=== PATIENT | male | born 1965 | race American Indian/Alaskan Native ===

== ENCOUNTER 2016-05-27 21:24 | Emergency (ER) | payer OTHER ==
[2016-05-27 21:25] VITALS: BMI 24.2
[2016-05-27 22:19] VITALS: BP 96/64; PULSE 81; RESP 15; TEMP 98.7; O2SAT 99
--- NOTE | 2016-05-27 22:53 | ED PDOC ---
Arrival/HPI - General Chief Complaint: Lower Extremity Problem/Injury Time Seen by Provider: 05/27/16 22:25 Historian: Patient - History of Present Illness Narrative History of Present Illness (Text): 05/27/16 22:51 50 y/o male, pmh including sciatica, nkda, c/o lt. ankle pain x 2 hours s/p twisted at work. Aching pain, aggravated by walking and standing, no numbness or tingling, no calf pain, no palpitation, no other medical or psychological complaints. Past Medical History - Provider Review Nursing Documentation Reviewed: Yes - Infectious Disease Hx of Infectious Diseases: None - Tetanus Immunization Tetanus Immunization: Up to Date - Cardiac Hx Cardiac Disorders: No - Pulmonary Hx Respiratory Disorders: No - Neurological Hx Neurological Disorder: No - HEENT Hx HEENT Disorder: No - Renal Hx Renal Disorder: No - Endocrine/Metabolic Hx Endocrine Disorders: No - Hematological/Oncological Hx Blood Disorders: Yes Hx Cancer: Yes (prostate) - Integumentary Hx Dermatological Disorder: No - Musculoskeletal/Rheumatological Hx Musculoskeletal Disorders: No - Gastrointestinal Hx Gastrointestinal Disorders: Yes Hx Gastroesophageal Reflux: Yes Other/Comment: OCCASSIONAL CONSTIPATION - Genitourinary/Gynecological Hx Genitourinary Disorders: No - Psychiatric Hx Psychophysiologic Disorder: No Hx Substance Use: No - Past Surgical History Past Surgical History: Non-Contributing - Surgical History Other/Comment: PROSTATE BX. X 2,prostatectomy - Anesthesia Hx Anesthesia: Yes Hx Anesthesia Reactions: No Hx Malignant Hyperthermia: No - Suicidal Assessment Feels Threatened In Home Enviroment: No Family/Social History - Physician Review Nursing Documentation Reviewed: Yes Family/Social History: Unknown Family HX Smoking Status: Never Smoked Hx Alcohol Use: No Hx Substance Use: No Hx Substance Use Treatment: No Allergies/Home Meds Allergies/Adverse Reactions: Allergies No Known Allergies Allergy (Verified 05/27/16 22:16) Home Medications: Home Meds Medication Instructions Recorded Confirmed Esomeprazole Magnesium [Nexium] 40 mg PO DAILY 04/08/13 05/27/16 Review of Systems - Review of Systems Constitutional: absent: Fatigue, Fevers Eyes: absent: Vision Changes ENT: absent: Hearing Changes Respiratory: absent: Cough Cardiovascular: absent: Chest Pain Gastrointestinal: absent: Abdominal Pain, Nausea, Vomiting Musculoskeletal: Arthralgias. absent: Back Pain, Neck Pain, Joint Swelling, Myalgias Skin: absent: Rash, Pruritis, Skin Lesions, Laceration, Abscess, Ulcer, Cellulitis Neurological: absent: Headache, Dizziness, Focal Weakness, Gait Changes, Speech Changes, Facial Droop, Disequilibrium, Seizure Physical Exam Vital Signs Reviewed: Yes Vital Signs Temp Pulse Resp BP Pulse Ox 05/27/16 22:17 98.7 F 81 15 96/64 L 99 Temperature: Afebrile Pulse: Regular Respiratory Rate: Normal Appearance: Positive for: Well-Appearing, Non-Toxic, Comfortable Pain Distress: None Mental Status: Positive for: Alert and Oriented X 3 - Systems Exam Head: Present: Atraumatic, Normocephalic. No: Tenderness, Contusion, Swelling, Ecchymosis, Abrasion, Laceration, Other Ears: Present: NORMAL TM, Normal Canal Pharnyx: No: ERYTHEMA, EXUDATE, TONSILS ENLARGED Nose (External): Present: Atraumatic. No: Abrasion, Contusion Neck: Present: Normal Range of Motion Respiratory/Chest: Present: Clear to Auscultation, Good Air Exchange, Respiratory Distress Cardiovascular: Present: Regular Rate and Rhythm, Normal S1, S2. No: Murmurs Abdomen: Present: Normal Bowel Sounds. No: Tenderness, Distention, Peritoneal Signs Lower Extremity: Present: Normal Inspection, NORMAL PULSES, Neurovascularly Intact, Other (Lt. foot/ankle: +ttp on the lateral mallolus near the lateral foot/ankle region, no swelling, no deformity, negative bryon and castaneda signs , FROM without limitation, sensation intact, motor 5/5, +DPPT pulses, capillary refill< 2 seconds, neurovascuar intact. ). No: Edema, CALF TENDERNESS, Bryon's Sign Medical Decision Making ED Course and Treatment: 05/27/16 22:54 -lt. foot/ankle xray -motrin -observe and reassess 05/27/16 23:30 -Lt. foot and ankle show possible avulsion fracture, -posterior splint applied with neurovascular intact by me and crutches ordered with neurovascular intact. -Discharge home with posterior splint, crutches, naproxen, weight bearing as tolerated, follow up with your own pmd and orthopedic/truck driver within 2 days, return to the ER for any new or worsening signs or symptoms. - RAD Interpretation Radiology Orders: 05/27/16 22:48 ANKLE LEFT 3 VIEWS ROUTINE [RAD] Stat FOOT LEFT 3 VIEWS ROUTINE [RAD] Stat COMPARISON: CR - ANKLE LEFT 3 VIEWS ROUTINE 05/27/2016 10:41:51 PM FINDINGS: Bones/joints: 2 well-circumscribed 3 and 4 mm osseous densities are identified adjacent to the cuboid bone, possibly small sesamoid bones versus evulsion fractures for which clinical correlation is needed. Please correlate this finding to the point of maximal tenderness on clinical examination. No acute displaced fracture is otherwise identified. Soft tissues: No discrete soft tissue swelling is detected. No radiopaque foreign body. IMPRESSION: Findings lateral to the cuboid bone which may simply represent a small sesamoid bones, and evulsion fracture cannot be excluded for which clinical correlation is needed. Thank you for allowing us to participate in the care of your patient. Dictated and Authenticated by: Beata Owens MD Shoe Repairer Apprentice: Radiologist - Medication Orders Current Medication Orders: Discontinued Medications Ibuprofen (Motrin Tab) 600 mg PO STAT STA Stop: 05/27/16 22:51 Last Admin: 05/27/16 23:01 Dose: 600 MG MAR Pain/Vitals Document 05/27/16 23:01 [facility] (Rec: 05/27/16 23:01 [email or web address]) Pain Reassessment Is This A Pain ReAssessment? No Sleep Is patient sleeping during reassessment? No Presence of Pain Presence of Pain Yes Pain Scale Used Pain Scale Used Numeric Location Left, Right or Bilateral Left Pain Location Body Site Ankle Description Constant Intensity 8 Scale Used Numeric - PA / HEALTH AND SAFETY TECH / Resident Statement MD/DO has reviewed & agrees with the documentation as recorded. Disposition/Present on Arrival - Present on Arrival Any Indicators Present on Arrival: No History of DVT/PE: No History of Uncontrolled Diabetes: No Urinary Catheter: No History of Decub. Ulcer: No History Surgical Site Infection Following: None - Disposition Have Diagnosis and Disposition been Completed?: Yes Diagnosis: Ankle injury, Ankle pain, Foot fracture Disposition: HOME/ ROUTINE Disposition Time: 23:31 Patient Plan: Discharge Condition: IMPROVED Additional Instructions: Discharge home with posterior splint, crutches, naproxen, weight bearing as tolerated, follow up with your own pmd and orthopedic/truck driver within 2 days, return to the ER for any new or worsening signs or symptoms. Prescriptions: Naproxen 500 mg PO BID PRN #20 tab PRN Reason: Other Referrals: Anthony Bronson MD [Primary Care Provider] - Follow up with primary Gabriel Matta III, MD [Medical Doctor] - Follow up with primary Georgina Patterson DPM [Staff Provider] - Follow up with primary Forms: WORK NOTE
--- NOTE | 2016-05-28 10:10 | RAD ---
PROCEDURE: Left Ankle Radiographs. HISTORY: Twisting injury COMPARISON: None FINDINGS: BONES: Normal. No fracture. JOINTS: Normal. No osteoarthritis. Ankle mortise maintained. Talar dome intact SOFT TISSUES: Minor soft tissue swelling over lateral malleolus OTHER FINDINGS: None. IMPRESSION: No acute fractures nor dislocations. Minor soft tissue swelling over lateral malleolus of. If symptoms persist or occult fracture suspected clinically, consider followup radiographs in 5-10 days as most fractures should become radiographically evident in this timeframe.
--- NOTE | 2016-05-28 10:57 | RAD ---
PROCEDURE: Left Foot Radiographs. HISTORY: Twisting injury COMPARISON: Correlation made with concurrent radiographs of the left ankle FINDINGS: BONES: The current study reveals no definitive radiographic evidence of acute displaced fracture nor dislocation. Few tiny well corticated bony densities within the soft tissues adjacent to the inferolateral margin of the cuboid may represent sesamoid bones however concomitant sequela of old avulsion injury not excluded. Recommend correlation with physical exam to assess for point tenderness JOINTS: Joint spaces appear relatively preserved with no significant osteoarthritis SOFT TISSUES: No radiopaque foreign bodies are identified. OTHER FINDINGS: None. IMPRESSION: There are a few tiny corticated bony densities within the inferolateral soft tissues adjacent to the lateral margin of the cuboid that could represent sesamoid bones however of concomitant sequela of old avulsion injury not excluded. Recommend correlation with physical exam as above
== END 2016-05-28 00:58 | disposition home or self-care (01) ==
LOC: ED 21:24
DX: S99.912A Unspecified injury of left ankle, initial encounter (principal); S92.902A Unspecified fracture of left foot, initial encounter for closed fracture; X50.1XXA Overexertion from prolonged static or awkward postures, initial encounter; Y92.89 Other specified places as the place of occurrence of the external cause; Y99.0 Civilian activity done for income or pay; M25.572 Pain in left ankle and joints of left foot

== ENCOUNTER 2017-12-17 12:42 | Emergency (ER) | payer OTHER ==
[2017-12-17 12:49] VITALS: RESP 18; TEMP 98.4; BMI 25.0
--- NOTE | 2017-12-17 14:57 | ED PDOC ---
Arrival/HPI - General Chief Complaint: Eye Problem Time Seen by Provider: 12/17/17 13:42 Historian: Patient - History of Present Illness Narrative History of Present Illness (Text): 12/17/17 14:58 52-year-old male presents today with a red itchy eye that started this morning. Patient denies pain. He denies blurred vision in the left eye. He denies headaches dizziness or weakness. He denies chest pain or shortness of breath. Ran parker states for the past 2 weeks in the right eye he has been having intermittently blurry vision. Patient states for second his I will go cloudy and then will clear up. Patient states she's not sure if there is a film or discharge that covering the eye. Patient states the cloudiness last a second and then resolves. He denies any pain in the right eye. Patient denies any visual problems at present time. Patient denies any trauma or injury. No other complaints Time/Duration: > week Past Medical History - Provider Review Nursing Documentation Reviewed: Yes - Travel History Have you recently traveled outside [place] w/in the past 3 mons?: No - Infectious Disease Hx of Infectious Diseases: None - Tetanus Immunization Tetanus Immunization: Up to Date - Cardiac Hx Cardiac Disorders: No - Pulmonary Hx Respiratory Disorders: No - Neurological Hx Neurological Disorder: No - HEENT Hx HEENT Disorder: No - Renal Hx Renal Disorder: No - Endocrine/Metabolic Hx Endocrine Disorders: No - Hematological/Oncological Hx Blood Disorders: Yes Hx Cancer: Yes (prostate) - Integumentary Hx Dermatological Disorder: No - Musculoskeletal/Rheumatological Hx Musculoskeletal Disorders: No - Gastrointestinal Hx Gastrointestinal Disorders: Yes Hx Gastroesophageal Reflux: Yes Other/Comment: OCCASSIONAL CONSTIPATION - Genitourinary/Gynecological Hx Genitourinary Disorders: Yes Hx Prostate Cancer: Yes - Psychiatric Hx Psychophysiologic Disorder: No Hx Substance Use: No - Past Surgical History Past Surgical History: Non-Contributing - Surgical History Other/Comment: PROSTATE BX. X 2,prostatectomy - Anesthesia Hx Anesthesia: Yes Hx Anesthesia Reactions: No Hx Malignant Hyperthermia: No - Suicidal Assessment Feels Threatened In Home Enviroment: No Family/Social History - Physician Review Nursing Documentation Reviewed: Yes Family/Social History: Unknown Family HX Smoking Status: Never Smoked Hx Alcohol Use: No Hx Substance Use: No Hx Substance Use Treatment: No Allergies/Home Meds Allergies/Adverse Reactions: Allergies No Known Allergies Allergy (Verified 12/17/17 13:23) Review of Systems - Review of Systems Constitutional: absent: Fatigue, Fevers Eyes: Vision Changes. absent: Photophobia, Eye Pain Respiratory: absent: SOB, Cough Cardiovascular: absent: Chest Pain, Palpitations Gastrointestinal: absent: Abdominal Pain, Nausea, Vomiting Neurological: absent: Headache, Dizziness Psychiatric: absent: Anxiety, Depression Physical Exam Vital Signs Reviewed: Yes Vital Signs Temp Pulse Resp BP Pulse Ox 12/17/17 12:48 98.4 F 78 18 125/73 100 Temperature: Afebrile Blood Pressure: Normal Pulse: Regular Respiratory Rate: Normal Appearance: Positive for: Well-Appearing, Non-Toxic, Comfortable Pain Distress: None Mental Status: Positive for: Alert and Oriented X 3 - Systems Exam Head: Present: Atraumatic Pupils: Present: PERRL Extroacular Muscles: Present: EOMI. No: Entrapment Conjunctiva: Present: Injected (minimal left eye conjunctival injection; ), Other (no hyphema. no corneal abrasion or ulceration; pressure in right eye 19, pressure in left eye 17, ) Ears: Present: Normal, NORMAL TM. No: Erythema Mouth: Present: Moist Mucous Membranes Neck: Present: Normal Range of Motion Respiratory/Chest: Present: Clear to Auscultation, Good Air Exchange. No: Respiratory Distress, Accessory Muscle Use Cardiovascular: Present: Regular Rate and Rhythm, Normal S1, S2. No: Murmurs Upper Extremity: Present: Normal ROM Lower Extremity: Present: Normal ROM Neurological: Present: GCS=15, Speech Normal Skin: Present: Warm, Dry Psychiatric: Present: Alert, Oriented x 3 Medical Decision Making ED Course and Treatment: 12/17/17 15:08 Patient is nontoxic well appearing in no distress Patient with left eye redness since this morning and the right eye intermittent blurred vision 2 weeks currently without blurred vision. No corneal abrasions. No elevated ocular pressure. No signs of acute trauma. Left Conjunctival injection noted, PERRLA, extraocular muscles intact Case was discussed in depth with Dr. Jacobson; he will see the patient in the office tomorrow morning at 9 AM Patient was advised to use antibiotics eyedrops as prescribed and follow-up with the eye doctor tomorrow morning at 9 AM in the office. Advised immediate return if symptoms worsen persist or if new concerning symptoms develop Patient verbalizes understanding of discharge instructions and need for immediate followup. all aspects of this case were discussed the attending of record. Impression: Conjunctivitis, vision changes Tobrex: 2 drops in the affected eye 4 times daily Followup with the eye doctor tomorrow at 9am Return immediately if symptoms worsen persist or if new symptoms develop; blurry vision, worsening eye pain, worsening redness or any other concerning symptoms develop. Follow up with the primary care physician within the next 2 days Disposition/Present on Arrival - Present on Arrival Any Indicators Present on Arrival: No History of DVT/PE: No History of Uncontrolled Diabetes: No Urinary Catheter: No History of Decub. Ulcer: No History Surgical Site Infection Following: None - Disposition Have Diagnosis and Disposition been Completed?: Yes Diagnosis: Conjunctivitis Disposition: HOME/ ROUTINE Disposition Time: 14:00 Patient Plan: Discharge Condition: GOOD Discharge Instructions (ExitCare): Conjunctivitis ([place]) Additional Instructions: Tobrex: 2 drops in the affected eye 4 times daily Followup with the eye doctor tomorrow at 9am Return immediately if symptoms worsen persist or if new symptoms develop; blurry vision, worsening eye pain, worsening redness or any other concerning symptoms develop. Follow up with the primary care physician within the next 2 days Prescriptions: Tobramycin 0.3% [Tobramycin 5 Ml] 2 drop OS QID #1 bottle Referrals: Neeraj Jacobson MD [Staff Provider] - Follow up with primary Brianna Guillermo MD [Medical Doctor] - Follow up with primary [employer] [Outside] - Follow up with primary Forms: [facility] (Chadian), WORK NOTE
[2017-12-17 16:23] VITALS: BP 114/77; PULSE 74; O2SAT 99
== END 2017-12-17 15:00 | disposition home or self-care (01) ==
LOC: ED 12:42
DX: H10.9 Unspecified conjunctivitis (principal); Z85.46 Personal history of malignant neoplasm of prostate

== ENCOUNTER 2018-01-28 10:59 | Emergency (ER) | payer OTHER ==
[2018-01-28 11:00] VITALS: BMI 25.0
[2018-01-28 11:21] VITALS: RESP 18
--- NOTE | 2018-01-28 12:58 | ED PDOC ---
Arrival/HPI - General Chief Complaint: Eye Problem Time Seen by Provider: 01/28/18 11:11 Historian: Patient - History of Present Illness Narrative History of Present Illness (Text): 01/28/18 12:54 A 52 year old male, with no significant past medical history, presents to the emergency department with a complaint of bilateral eye pain. The patient notes that the eye discomfort began last night. He notes that he has been seen by his time study technologist, who prescribed him Tobramycin Dexamethasone Ophthalmic Suspension. He reports using it, but his pain becoming worse last night. He also complains of photophobia. Patient denies fevers, chills, headache, dizziness, chest pain, shortness of breath, dyspnea on exertion, cough, abdominal pain, nausea, vomiting, diarrhea, back pain, neck pain, urinary/bowel changes, or any other complaint. Loan Representative: Dr. Braxton Time/Duration: Other (Today) Symptom Onset: Sudden Symptom Course: Worsening Activities at Onset: Rest, Light Context: Home Past Medical History - Provider Review Nursing Documentation Reviewed: Yes - Infectious Disease Hx of Infectious Diseases: None - Tetanus Immunization Tetanus Immunization: Up to Date - Cardiac Hx Cardiac Disorders: No - Pulmonary Hx Respiratory Disorders: No - Neurological Hx Neurological Disorder: No - HEENT Hx HEENT Disorder: No - Renal Hx Renal Disorder: No - Endocrine/Metabolic Hx Endocrine Disorders: No - Hematological/Oncological Hx Blood Disorders: Yes Hx Cancer: Yes (prostate) - Integumentary Hx Dermatological Disorder: No - Musculoskeletal/Rheumatological Hx Musculoskeletal Disorders: No - Gastrointestinal Hx Gastrointestinal Disorders: Yes Hx Gastroesophageal Reflux: Yes Other/Comment: OCCASSIONAL CONSTIPATION - Genitourinary/Gynecological Hx Genitourinary Disorders: No - Psychiatric Hx Psychophysiologic Disorder: No Hx Substance Use: No - Past Surgical History Past Surgical History: Non-Contributing - Surgical History Other/Comment: PROSTATE BX. X 2,prostatectomy - Anesthesia Hx Anesthesia: Yes Hx Anesthesia Reactions: No Hx Malignant Hyperthermia: No - Suicidal Assessment Feels Threatened In Home Enviroment: No Family/Social History - Physician Review Nursing Documentation Reviewed: Yes Family/Social History: No Known Family HX Smoking Status: Never Smoked Hx Alcohol Use: No Hx Substance Use: No Hx Substance Use Treatment: No Allergies/Home Meds Allergies/Adverse Reactions: Allergies No Known Allergies Allergy (Verified 01/28/18 11:21) Review of Systems - Physician Review All systems were reviewed & negative as marked: Yes - Review of Systems Constitutional: absent: Fevers Eyes: Photophobia, Eye Pain (bilateral eye pain.) Respiratory: absent: SOB, Cough Cardiovascular: absent: Chest Pain, ALONZO Gastrointestinal: absent: Abdominal Pain, Stool Changes, Diarrhea, Nausea, Vomiting Genitourinary Male: absent: Urinary Output Changes Musculoskeletal: absent: Back Pain, Neck Pain Neurological: absent: Headache, Dizziness Physical Exam - Physical Exam Narrative Physical Exam (Text): 01/28/18 13:07 Gen: VS reviewed, alert, well developed, well nourished, nontoxic, mild distress. ENT: normal pharynx. Eye: EOMI, PERRL. Bilateral conjunctival injection and redness. Photophobia. Neck: no JVD, supple, no adenopathy. CV: regular rate, regular rhythm, no rubs, no murmur, no gallops, S1, S2, pulses equal and strong. Pulm: no distress, clear to auscultation, no wheeze, no rhonchi, breath sounds equal, no rales. Abd: soft, nontender, no guarding, no rebound, no rigidity, normal bowel sounds. Ext: no edema. Skin: good color, no rash, no cyanosis. Psych: responds appropriately to questions, normal affect. Neuro: oriented x 3, CN2-12 intact grossly, motor intact, sensation intact. Vital Signs Reviewed: Yes Vital Signs Temp Pulse Resp BP Pulse Ox 01/28/18 11:18 98.1 F 76 18 126/79 99 Temperature: Afebrile Blood Pressure: Normal Pulse: Regular Respiratory Rate: Normal Appearance: Positive for: Well-Appearing, Non-Toxic, Comfortable Pain Distress: None Mental Status: Positive for: Alert and Oriented X 3 Medical Decision Making ED Course and Treatment: 01/28/18 13:08 Impression: A 52 year old male presents to the emergency department with a complaint of bilateral eye pain. Plan: -- Reassess and disposition Prior Visits: Notes and results from previous visits were reviewed. Progress Notes: 01/28/18 14:00 no abnormal fluerescein uptake in both eyes iop in right eye measured at 22 iop in left eye measured at 27 01/28/18 14:[address] braxton, ophthmalmology, states that despite elevated IOP they are not consistent with pain associated with glaucoma. He recommnds switching eye drops to Maxitrol and for the patient to follow up tomorrow morning at 9AM. 01/28/18 15:48 patient feels much better, no longer has photophobia, appears comfortable and stable for dc - Scribe Statement The provider has reviewed the documentation as recorded by the Scribe Guillermina Casey Provider Scribe Attestation: All medical record entries made by the Scribe were at my direction and personally dictated by me. I have reviewed the chart and agree that the record accurately reflects my personal performance of the history, physical exam, medical decision making, and the department course for this patient. I have also personally directed, reviewed, and agree with the discharge instructions and disposition. Disposition/Present on Arrival - Present on Arrival Any Indicators Present on Arrival: No History of DVT/PE: No History of Uncontrolled Diabetes: No Urinary Catheter: No History of Decub. Ulcer: No History Surgical Site Infection Following: None - Disposition Have Diagnosis and Disposition been Completed?: Yes Diagnosis: Eye pain Disposition: HOME/ ROUTINE Disposition Time: 15:50 Patient Plan: Discharge Patient Problems: Current Active Problems Problem Status Onset Eye pain Acute Condition: STABLE Additional Instructions: Follow up with Dr. Braxton tomorrow morning at 9AM. GAMALIEL DE LA TORRE, thank you for letting us take care of you today. Your provider was Dr. Yonis Chatman and you were treated for eye inflammation. The emergency medical care you received today was directed at your acute symptoms. If you were prescribed any medication, please fill it and take as directed. It may take several days for your symptoms to resolve. Return to the Emergency Department if your symptoms worsen, do not improve, or if you have any other problems. Please contact your doctor or call one of the physicians/clinics you have been referred to that are listed on the Patient Visit Information form that is included in your discharge packet. Bring any paperwork you were given at discharge with you along with any medications you are taking to your follow up visit. Our treatment cannot replace ongoing medical care by a primary care provider outside of the emergency department. Thank you for allowing the [facility] team to be part of your care today. If you had an X-Ray or CT scan: A Radiologist will review the ED reading if any change in treatment is needed we will contact you. If you had a blood, urine, or wound culture: It will take several days for the results, if any change in treatment is needed we will contact you. If you had an STI test: It will take 48 hours for the results. Please call after 1 week if you have not heard back. Prescriptions: Neomycin/Polymyxin/Dexamethaso [Maxitrol Opth Oint] 3.5 applic OD TID #1 tube Referrals: Julián Chang MD [Primary Care Provider] - Follow up with primary Forms: [employer] (Palestinian)
[2018-01-28] MEDS ORDERED: Morphine 4 mg/ml ISec IVP STA (13:59)
[2018-01-28 14:30] LABS: BASO # 0.01 K/mm3 (0.0-2.0); BASO % 0.2 % (0.0-3.0); EOS # 0.1 (0.0-0.7); EOS % 1.2 % (1.5-5.0); GRAN % 59.1 % (50.0-68.0); HEMOGLOBIN 13.2 g/dL (14.0-18.0); LYMPH # 1.8 (1.2-3.4); LYMPH % 34.6 % (22.0-35.0); MEAN CORPUSCULAR HEMOGLOBIN 27.2 pg (25.0-35.0); MEAN CORPUSCULAR HGB CONC 33.6 g/dl (31.0-37.0); MEAN PLATELET VOLUME 9.9 fl (7.0-11.0); MONO # 0.3 (0.1-0.6); MONO % 4.9 % (1.0-6.0); RBC 4.85 10^6/uL (3.5-6.1); RED CELL DISTRIBUTION WIDTH 15.7 % (11.5-14.5); WHITE BLOOD COUNT 5.1 10^3/uL (4.5-11.0)
[2018-01-28 15:09] LABS: BLOOD UREA NITROGEN 14 mg/dL (7-21); CALCIUM 8.3 mg/dL (8.4-10.5); GFR NON-AFRICAN AMERICAN > 60
[2018-01-28 16:29] VITALS: BP 115/64; PULSE 74; TEMP 98.2; O2SAT 99
== END 2018-01-28 16:27 | disposition home or self-care (01) ==
LOC: ED 10:59
DX: H57.13 Ocular pain, bilateral (principal)
CPT/HCPCS: 80048; 85025; 96374; 99284; J2270

== ENCOUNTER 2018-05-18 10:08 | Outpatient (CLI) | payer OTHER | END 2018-05-18 10:09 | disposition home or self-care (01) | LOC: LAB 10:08 | DX: C61 Malignant neoplasm of prostate (principal) ==

== ENCOUNTER 2018-06-02 17:13 | Emergency (ER) | payer OTHER ==
[2018-06-02 17:16] VITALS: BMI 24.2
[2018-06-02 17:20] VITALS: RESP 18; TEMP 98.4
[2018-06-02] MEDS ORDERED: Lidocaine 1% Inj (20ml) IJ STA (17:32)
[2018-06-02] MEDS ORDERED: Bacitracin 500 Units/gm Oint Foilpak UD TOP ONE (17:32)
[2018-06-02] MEDS ORDERED: TDAP Vaccine 0.5 mL Syr IM ONE (17:34)
--- NOTE | 2018-06-02 17:50 | ED PDOC ---
Arrival/HPI - General Chief Complaint: Finger,Hand,&Wrist Time Seen by Provider: 06/02/18 17:21 Historian: Patient - History of Present Illness Narrative History of Present Illness (Text): 52 y/o male with PMH of prostate cancer and GERD presents to the ED for foreign body removal from left 2nd digit middle phalanx. Pt was fixing windows in his home when his hand slipped and a wooden splinter entered the lateral volar surface of the middle phalanx left 2nd digit. Pt was not wearing gloves. He attempted to remove the splinter at home but was unsuccessful. Unknown last tetanus. Denies numbness, weakness, paresthesias, pain elsewhere, or any other associated symptoms. Past Medical History - Provider Review Nursing Documentation Reviewed: Yes - Infectious Disease Hx of Infectious Diseases: None - Tetanus Immunization Tetanus Immunization: Up to Date - Cardiac Hx Cardiac Disorders: No - Pulmonary Hx Respiratory Disorders: No - Neurological Hx Neurological Disorder: No - HEENT Hx HEENT Disorder: No - Renal Hx Renal Disorder: No - Endocrine/Metabolic Hx Endocrine Disorders: No - Hematological/Oncological Hx Blood Disorders: Yes Hx Cancer: Yes (prostate) - Integumentary Hx Dermatological Disorder: No - Musculoskeletal/Rheumatological Hx Musculoskeletal Disorders: No - Gastrointestinal Hx Gastrointestinal Disorders: Yes Hx Gastroesophageal Reflux: Yes Other/Comment: OCCASSIONAL CONSTIPATION - Genitourinary/Gynecological Hx Genitourinary Disorders: No - Psychiatric Hx Psychophysiologic Disorder: No Hx Substance Use: No - Past Surgical History Past Surgical History: Non-Contributing - Surgical History Other/Comment: PROSTATE BX. X 2,prostatectomy - Anesthesia Hx Anesthesia: Yes Hx Anesthesia Reactions: No Hx Malignant Hyperthermia: No - Suicidal Assessment Feels Threatened In Home Enviroment: No Family/Social History - Physician Review Nursing Documentation Reviewed: Yes Family/Social History: No Known Family HX Smoking Status: Never Smoked Hx Alcohol Use: No Hx Substance Use: No Hx Substance Use Treatment: No Allergies/Home Meds Allergies/Adverse Reactions: Allergies No Known Allergies Allergy (Verified 01/28/18 11:21) Review of Systems - Review of Systems Constitutional: Normal. absent: Fevers Respiratory: Normal. absent: SOB, Cough Cardiovascular: Normal. absent: Chest Pain, Palpitations, Syncope Gastrointestinal: Normal. absent: Abdominal Pain, Nausea, Vomiting Musculoskeletal: Normal. absent: Back Pain, Neck Pain Skin: Other (splinter in left 2nd digit) Neurological: Normal Physical Exam Vital Signs Reviewed: Yes Vital Signs Temp Pulse Resp BP Pulse Ox 06/02/18 17:13 98.4 F 83 18 134/86 98 Temperature: Afebrile Blood Pressure: Normal Pulse: Regular Respiratory Rate: Normal Appearance: Positive for: Well-Appearing, Non-Toxic, Comfortable Pain Distress: None Mental Status: Positive for: Alert and Oriented X 3 - Systems Exam Head: Present: Atraumatic, Normocephalic Pupils: Present: PERRL Extroacular Muscles: Present: EOMI Conjunctiva: Present: Normal Mouth: Present: Moist Mucous Membranes Neck: Present: Normal Range of Motion. No: Meningeal Signs Respiratory/Chest: Present: Clear to Auscultation, Good Air Exchange. No: Respiratory Distress, Accessory Muscle Use Cardiovascular: Present: Regular Rate and Rhythm, Normal S1, S2, Peripheal Pulses Present Back: Present: Normal Inspection Upper Extremity: Present: Normal Inspection, Normal ROM, NORMAL PULSES, Tenderness (over splinter), Neurovascularly Intact, Capillary Refill < 2s, Other (small puncture wound to lateral left second digit, volar aspect of middle phalanx with visible foreign body just under skin; no signs of infection, no active bleeding). No: Cyanosis, Edema, Temperature Abnormalties Lower Extremity: Present: Normal ROM Neurological: Present: GCS=15, Speech Normal, Motor Func Grossly Intact, Normal Sensory Function, Gait Normal Skin: Present: Warm, Dry, Normal Color. No: Rashes Psychiatric: Present: Alert, Oriented x 3, Normal Insight, Normal Concentration, Normal Affect, Normal Mood Medical Decision Making ED Course and Treatment: Initial Plan: * Wound cleaning * FB removal * TDaP * Tylenol Foreign body removed from left second digit without difficulty. Pt tolerated procedure well without complication. Hemostasis achieved. No further FB seen. See procedure note. Wound care discussed. No XR indicated as wood is radiolucent. Advised PMD and hand followup. Prescribed course of prophylactic antibiotics secondary to puncture wound. Diagnostic testing results and plan of care discussed with patient. Strict instructions given regarding prescription use, importance of followup, and signs/symptoms to return to ER including wound swelling, redness, erythema, drainage, foul odor, worsening pain, or any other new/worsening symptoms. Pt verbalized understanding of discussion. Patient is A&Ox3, ambulating with steady gait, with vital signs stable for discharge. - Medication Orders Current Medication Orders: Bacitracin (Bacitracin) 1 ea TOP ONCE ONE Stop: 06/02/18 17:33 Lidocaine HCl (Lidocaine 1% (20ml)) 10 ml IJ STAT STA Stop: 06/02/18 17:33 Procedures - Time-Out Type of Procedure: Foreign Body Removal Site of Procedure: Left 2nd digit Correct Patient (with visual ID + MR# on ID Band): Yes Correct Procedure: Yes Correct Site Marked: Yes Medication Reconciliation / Bloodwork / Allergies Checked: Yes PA/Tech: Andrez - Additional Procedures Progress: Left 2nd digit prepped with betadine. Digit block performed using 3cc 1% lidocaine without epinephrine. Area again prepped with betadine. Small, 3mm incision made to lateral middle phalanx of left 2nd digit to widen entry point with #11 blade. 1.25cm wooden splinter removed whole from middle phalanx without difficulty. No further FB seen on wound exploration. Wound irrigated with 100cc NS. Bacitracin and sterile dressing applied. Tetanus updated. Disposition/Present on Arrival - Present on Arrival Any Indicators Present on Arrival: No History of DVT/PE: No History of Uncontrolled Diabetes: No Urinary Catheter: No History of Decub. Ulcer: No History Surgical Site Infection Following: None - Disposition Have Diagnosis and Disposition been Completed?: Yes Diagnosis: Splinter in skin Disposition: HOME/ ROUTINE Disposition Time: 19:00 Patient Plan: Discharge Condition: IMPROVED Discharge Instructions (ExitCare): Wound Care Additional Instructions: Keflex every 6 hours for 1 week Tylenol for pain as needed Followup with primary doctor within 2 days Followup with hand doctor for persistent pain Return to ER with any new/worsening symptoms Prescriptions: Cephalexin [Keflex] 500 mg PO QID 7 Days #28 capsule Referrals: Julián Chang MD [Primary Care Provider] - Follow up with primary Tamir Wilson MD [Staff Provider] - Follow up with primary Forms: [facility] ([employer] [place]), WORK NOTE
[2018-06-02 20:14] VITALS: BP 137/82; PULSE 80; O2SAT 100
== END 2018-06-02 19:15 | disposition home or self-care (01) ==
LOC: ED 17:13
DX: S60.451A Superficial foreign body of left index finger, initial encounter (principal); W45.8XXA Other foreign body or object entering through skin, initial encounter; Z23 Encounter for immunization